=== PATIENT | male | born 1955 | race Caucasian/White ===

== ENCOUNTER → 2017-07-02 | Outpatient (CLI) | payer OTHER ==
[~2017-07-02] MED LIST: ASPI325; Aspir 8181 MG PO; DOXY100 PO; FLEC50 PO; LIVALO PO; METO50 PO; MULVITMINF PO; NEBI10 PO; OLMESARTAN MEDO20 MG PO; RAMI2.5 PO; RANI150 PO; SERT50 PO; UBID100 PO
[2017-07-02 10:58] LABS: BASOPHILS ABSOLUTE AUTO 0.04 K/mm3 (0.00-0.23); BASOPHILS PERCENT AUTO 1 % (0-2); EOSINOPHILS ABSOLUTE AUTO 0.17 K/mm3 (0.00-0.68); EOSINOPHILS PERCENT AUTO 3 % (0-6); Hematocrit 44.8 % (37.0-53.0); Hemoglobin 15.1 g/dL (13.5-17.5); IMMATURE GRAN ABSOLUTE AUTO 0.03 K/mm3 (0.00-0.10); IMMATURE GRAN PERCENT AUTO 1 % (0-1); LYMPHOCYTES PERCENT AUTO 27 % (21-46); MONOCYTES ABSOLUTE AUTO 0.66 K/mm3 (0.16-1.47); MONOCYTES PERCENT AUTO 12 % (4-13); Mean Corpuscular HGB 32.3 pg (26.0-34.0); Mean Corpuscular HGB Conc 33.7 g/dL (31.5-36.5); Mean Corpuscular Volume 96 fL (80-100); Mean Platelet Volume 9.6 fL (9.1-12.4); NEUTROPHILS ABSOLUTE AUTO 3.17 K/mm3 (1.96-9.15); NEUTROPHILS PERCENT AUTO 57 % (41-73); Platelet Count 185 K/mm3 (150-400); RDW Coefficient Variation 13.3 % (11.7-14.2); RDW Standard Deviation 46.1 fL (35.1-46.3); Red Blood Cell Count 4.68 M/mm3 (4.30-5.90); White Blood Cell Count 5.57 K/mm3 (4.00-11.30)
[2017-07-02 11:13] LABS: Alanine Aminotransfer (ALT/SGP 59 U/L (12-78); Albumin, Blood 4.1 g/dL (3.4-5.0); Albumin/Globulin Ratio 1.2 (0.8-1.8); Alk Phos 86 U/L (50-136); Anion Gap 6 mmol/L (6-16); Aspartate Aminotrans (AST/SGOT 22 U/L (12-37); Bilirubin, Total 0.7 mg/dL (0.1-1.0); Blood Urea Nitrogen 16 mg/dL (8-24); C-REACTIVE PROTEIN, EXT RANGE <0.290 mg/dL (0.000-0.300); CO2, Blood 27 mmol/L (21-32); CPK Creatine Kinase 128 U/L (39-308); Calcium, Blood 8.5 mg/dL (8.5-10.1); Chloride, Blood 110 mmol/L (98-108); Creatinine, Blood 0.84 mg/dL (0.60-1.20); Globulin, Blood 3.3 g/dL (2.2-4.0); Glomerular Filtration Rate >60 (60-); Glucose, Blood 117 mg/dL (70-99); Potassium, Blood 3.6 mmol/L (3.5-5.5); Sodium, Blood 143 mmol/L (136-145); Total Protein, Blood 7.4 g/dL (6.4-8.2)
[2017-07-02 11:16] LABS: Thyroid Stimulating Hormone 0.859 uIU/mL (0.360-4.800)
[2017-07-04 10:51] LABS: Antinuclear Antibody Screen Negative (Negative)
[2017-07-04 13:33] LABS: Rheumatoid Factor, Serum Negative (Negative)
== END ==
LOC: LAB 10:37
PROVIDERS: Family Medicine
DX: R53.83 Other fatigue (principal); R52 Pain, unspecified
CPT/HCPCS: 80053; 82550; 84443; 85025; 85651; 86038; 86140; 86430

== ENCOUNTER 2017-07-22 06:56 | Day surgery (SDC) | payer OTHER ==
[~2017-07-22] VITALS: Ht 180.3 cm; Wt 82.2 kg
== END 2017-07-22 08:57 | disposition home or self-care (01) ==
LOC: ORSCSDS 06:56
PROVIDERS: Internal Medicine Gastroenterology
PROC: 0DB68ZX Excision of Stomach, Via Natural or Artificial Opening Endoscopic, Diagnostic (ICD-10-PCS; principal; 2017-07-22 08:00)
PROC: 0DB58ZX Excision of Esophagus, Via Natural or Artificial Opening Endoscopic, Diagnostic (ICD-10-PCS; principal; 2017-07-22 08:00)
DX: K21.9 Gastro-esophageal reflux disease without esophagitis (principal); R05 Cough; I10 Essential (primary) hypertension; K29.80 Duodenitis without bleeding; K20.9 Esophagitis, unspecified; I48.0 Paroxysmal atrial fibrillation; K29.70 Gastritis, unspecified, without bleeding; Z79.899 Other long term (current) drug therapy
CPT/HCPCS: 88305; 88342; J0330; J1980; J2405; J7120

== ENCOUNTER 2019-10-31 10:41 | Day surgery (SDC) | payer MEDICARE, BC ==
[~2019-10-31] VITALS: Ht 180.3 cm; Wt 77.8 kg
--- NOTE | 2019-10-31 11:50 | NUR ---
10/31/19 1150 Christopher Wing 3ML [address] 200 M INJ INTO OPSITE AT 1142 BY MEHARVINDER.
== END 2019-10-31 12:17 | disposition home or self-care (01) ==
LOC: ORSCSDS 10:41
PROVIDERS: Anesthesiology
PROC: 3E0R33Z Introduction of Anti-inflammatory into Spinal Canal, Percutaneous Approach (ICD-10-PCS; principal; 2019-10-31 11:30)
DX: M54.12 Radiculopathy, cervical region (principal); I10 Essential (primary) hypertension; G90.3 Multi-system degeneration of the autonomic nervous system; I48.0 Paroxysmal atrial fibrillation; K21.9 Gastro-esophageal reflux disease without esophagitis; Z79.899 Other long term (current) drug therapy; Z79.82 Long term (current) use of aspirin
CPT/HCPCS: J1040; J2250; J3010; J7040

== ENCOUNTER 2021-04-13 12:03 | Day surgery (SDC) | payer MEDICARE, BC ==
[~2021-04-13] VITALS: Ht 180.3 cm; Wt 77.0 kg
[~2021-04-13 12:03] MED LIST changes: +ASPI81CH PO; +Ativan1 MG PO; +BANOPHEN25 MG PO; +BYDUREON B2 MG/0.81 SC; +CARBLEV25 PO; +DUTA.5 PO; +Diamox500 MG PO; +NAPR500 PO; +ONDA4 PO; +Pepcid40 MG PO; +TAMS.4ER PO; +ZANTAC PO
[2021-04-13] MEDS ORDERED: MIRALAX119 GM PO (12:40)
[2021-04-13] MEDS ORDERED: METO100ER PO (12:41)
[2021-04-13] MEDS ORDERED: NAPR500EC PO (12:43)
[2021-04-13] MEDS ORDERED: ASPI325 PO (12:43)
[2021-04-13] MEDS ORDERED: FAMO40 PO (12:44)
[2021-04-13] MEDS ORDERED: CARBLEV25 SL ×2 (12:51→13:02)
[2021-04-13] MEDS ORDERED: CARBIDOPA-LEVO1 EA11 PO (12:53)
[2021-04-13] MEDS ORDERED: CARBIDOPA-LEVO1 EA19 PO (14:27)
--- NOTE | 2021-04-13 14:54 | NUR ---
04/13/21 1454 Jasmyn Horvath PATIENT IS ON SCHEDULED ANTIBIOTIC VANCO LAST GIVE AT 1339 ON 04/13/21 PRIOR TO ARRIVAL IN OR. PATIENT LAST TOOK BETA CHERRI, METOPROLOL 50MG AT 2200 ON 04/12/21.
--- NOTE | 2021-04-13 17:06 | NUR ---
BLADDER SCAN 206ML
--- NOTE | 2021-04-13 17:54 | NUR ---
PT CPAP REMOVED FOR ICE CHIPS AND SIPS. PT MAINTAINED O2 SAT AT 92-93%. CPAP REPLACED.
--- NOTE | 2021-04-13 17:59 | NUR ---
DR CHOW AT BEDSIDE FOR CONULT. PT ABLE TO ANSWER QUESTIONS APPROPRIATELY.
[2021-04-13 19:31] LABS: BASOPHILS ABSOLUTE AUTO 0.02 K/mm3 (0.00-0.23); BASOPHILS PERCENT AUTO 0 % (0-2); EOSINOPHILS PERCENT AUTO 0 % (0-6); Hemoglobin 14.4 g/dL (13.5-17.5); IMMATURE GRAN ABSOLUTE AUTO 0.05 K/mm3 (0.00-0.10); IMMATURE GRAN PERCENT AUTO 1 % (0-1); LYMPHOCYTES PERCENT AUTO 7 % (21-46); MONOCYTES ABSOLUTE AUTO 0.21 K/mm3 (0.16-1.47); MONOCYTES PERCENT AUTO 3 % (4-13); Mean Corpuscular HGB 31.6 pg (26.0-34.0); Mean Corpuscular HGB Conc 33.5 g/dL (31.5-36.5); Mean Corpuscular Volume 95 fL (80-100); NEUTROPHILS ABSOLUTE AUTO 6.94 K/mm3 (1.96-9.15); NEUTROPHILS PERCENT AUTO 90 % (41-73); Platelet Count 175 K/mm3 (150-400); RDW Coefficient Variation 13.1 % (11.7-14.2); RDW Standard Deviation 45.2 fL (35.1-46.3); Red Blood Cell Count 4.55 M/mm3 (4.30-5.90); White Blood Cell Count 7.72 K/mm3 (4.00-11.30)
--- NOTE | 2021-04-13 19:45 | NUR ---
SHIFT SUMMARY PT ARRIVED TO THE ROOM FROM PACU AT APPROXIMATELY 1825. PT ALERT AND ORIENTED. PT ON CPAP WITH 10L O2, PT WAS TRASITIONED TO 2L O2 VIA NC, WITH SATURATIONS IN THE LOW 90S. PT DENIED NAUSEA AND REPORTED PAIN MANAGED. PT ABLE TO STAND AT THE BEDSIDE AND TRANSFER TO THE CHAIR. PT TOLERATED DINNER. VSS. REPORT GIVEN TO FRANCK GONZALES.
[2021-04-13 20:00] LABS: Albumin, Blood 3.3 g/dL (3.4-5.0); Anion Gap 6 mmol/L (6-16); Blood Urea Nitrogen 18 mg/dL (8-24); CO2, Blood 23 mmol/L (21-32); Calcium, Blood 8.6 mg/dL (8.5-10.1); Chloride, Blood 107 mmol/L (98-108); Glomerular Filtration Rate >60 (60-); Glucose, Blood 136 mg/dL (70-99); Magnesium, Blood 2.3 mg/dL (1.6-2.4); Phosphorus, Blood 2.5 mg/dL (2.5-4.9); Potassium, Blood 4.3 mmol/L (3.5-5.5); Sodium, Blood 136 mmol/L (136-145)
[2021-04-14 03:59] LABS: BASOPHILS ABSOLUTE AUTO 0.01 K/mm3 (0.00-0.23); BASOPHILS PERCENT AUTO 0 % (0-2); EOSINOPHILS PERCENT AUTO 0 % (0-6); Hematocrit 37.6 % (37.0-53.0); Hemoglobin 12.8 g/dL (13.5-17.5); IMMATURE GRAN ABSOLUTE AUTO 0.03 K/mm3 (0.00-0.10); IMMATURE GRAN PERCENT AUTO 0 % (0-1); LYMPHOCYTES ABSOLUTE AUTO 0.52 K/mm3 (0.84-5.20); LYMPHOCYTES PERCENT AUTO 7 % (21-46); MONOCYTES PERCENT AUTO 10 % (4-13); Mean Corpuscular HGB 31.7 pg (26.0-34.0); Mean Corpuscular Volume 93 fL (80-100); Mean Platelet Volume 9.3 fL (9.1-12.4); NEUTROPHILS ABSOLUTE AUTO 6.47 K/mm3 (1.96-9.15); NEUTROPHILS PERCENT AUTO 83 % (41-73); Platelet Count 167 K/mm3 (150-400); RDW Coefficient Variation 12.9 % (11.7-14.2); RDW Standard Deviation 44.6 fL (35.1-46.3); Red Blood Cell Count 4.04 M/mm3 (4.30-5.90); White Blood Cell Count 7.83 K/mm3 (4.00-11.30)
[2021-04-14 04:27] LABS: Anion Gap 7 mmol/L (6-16); Blood Urea Nitrogen 14 mg/dL (8-24); Bun/Creatinine Ratio 16.4 (12.0-20.0); CO2, Blood 24 mmol/L (21-32); Calcium, Blood 8.4 mg/dL (8.5-10.1); Chloride, Blood 105 mmol/L (98-108); Creatinine, Blood 0.86 mg/dL (0.60-1.20); Glomerular Filtration Rate >60 (60-); Glucose, Blood 123 mg/dL (70-99); Magnesium, Blood 2.1 mg/dL (1.6-2.4); Potassium, Blood 4.3 mmol/L (3.5-5.5); Sodium, Blood 136 mmol/L (136-145)
--- NOTE | 2021-04-14 07:30 | NUR ---
POD 1 S/P LEFT TKA. PT VSS T/O NIGHT. 2LO2 NC IN PLACE T/O NIGHT, SATS >90% ON RA THIS AM. DRESSING CDI, CHANGED BY SURGEON THIS AM. PT REP SENSATION AT BASELINE, CAP REFILL WNL. PT UP OOB W/FWW+SBA, AMB TO [facility] GYM AND BACK; [place]. PT DID STRUGGLE W/PAIN MGMT, REQUIRED IV MED FOR BREAKTHROUGH X1. PLAN FOR ECHO AND PT TODAY.
--- NOTE | 2021-04-14 09:55 | NUR ---
Echocardiogram completed. - kjw
[2021-04-14] MEDS ORDERED: AMOCLA875 PO (11:09)
[2021-04-14] MEDS ORDERED: OXYC5 PO (11:10)
[2021-04-14] MEDS ORDERED: ASPI81CH PO (11:11)
--- NOTE | 2021-04-14 11:42 | NUR ---
PHENERGAN PRESCRIPTION CALLED TO [facility].
--- NOTE | 2021-04-14 13:10 | NUR ---
DISCHARGE PT PROVIDED WITH WRITTEN AND VERBAL DISCHARGE INSTRUCTIONS, PT REPORTED UNDERSTANDING. PT PROVIDED WITH SCRIPT FOR FRONT WHEELED WALKER. PT PROVIDED WITH DRESSINGS AND DRESSING CHANGE INSTRUCTIONS. PT CLEARED THERAPY, PAIN MANAGED AND PT ABLE TO VOID. VSS. PT ASSISTED OUT IN WHEELCHAIR.
== END 2021-04-14 12:54 | disposition home or self-care (01) ==
LOC: ORSCMMR 12:03 → SURS 12:03 → ORSCMMR 12:04 → ORD 13:45 → SURS 18:12 → ORSCMMR 04-14 12:54
PROVIDERS: Internal Medicine; Orthopaedic Surgery
PROC: 8E0YXBZ Computer Assisted Procedure of Lower Extremity (ICD-10-PCS; principal; 2021-04-13 13:45)
PROC: 0SRD0J9 Replacement of Left Knee Joint with Synthetic Substitute, Cemented, Open Approach (ICD-10-PCS; principal; 2021-04-13 13:45)
DX: M17.12 Unilateral primary osteoarthritis, left knee (principal); G47.30 Sleep apnea, unspecified; I10 Essential (primary) hypertension; F41.9 Anxiety disorder, unspecified; Z79.899 Other long term (current) drug therapy
CPT/HCPCS: 36415; 71045; 73560-LT; 80048; 80069; 83735; 83880; 85025; 93306; 94660; 94762; 97110; 97116; 97162; A9270; C1713; C1776; J0171; J0690; J0735; J1100; J1170; J1885; J2250; J2370; J2405; J2704; J2795; J3010; J3370; J7120

== ENCOUNTER → 2022-07-28 | Outpatient (CLI) | payer MEDICARE, BC ==
[~2022-07-28] MED LIST changes: +AMOCLA875 PO; +ASPI325 PO; +CARBIDOPA-LEVO1 EA11 PO; +CARBIDOPA-LEVO1 EA19 PO; +CARBLEV25 SL; +FAMO40 PO; +METO100ER PO; +MIRALAX119 GM PO; +NAPR500EC PO; +OXYC5 PO
[2022-07-28 18:39] LABS: BASOPHILS ABSOLUTE AUTO 0.03 K/mm3 (0.00-0.23); BASOPHILS PERCENT AUTO 1 % (0-2); EOSINOPHILS ABSOLUTE AUTO 0.09 K/mm3 (0.00-0.68); EOSINOPHILS PERCENT AUTO 2 % (0-6); Hematocrit 43.7 % (37.0-53.0); Hemoglobin 15.2 g/dL (13.5-17.5); IMMATURE GRAN ABSOLUTE AUTO 0.01 K/mm3 (0.00-0.10); IMMATURE GRAN PERCENT AUTO 0 % (0-1); LYMPHOCYTES ABSOLUTE AUTO 1.16 K/mm3 (0.84-5.20); LYMPHOCYTES PERCENT AUTO 22 % (21-46); MONOCYTES ABSOLUTE AUTO 0.47 K/mm3 (0.16-1.47); MONOCYTES PERCENT AUTO 9 % (4-13); Mean Corpuscular HGB 33.6 pg (26.0-34.0); Mean Corpuscular HGB Conc 34.8 g/dL (31.5-36.5); Mean Corpuscular Volume 97 fL (80-100); Mean Platelet Volume 8.8 fL (9.1-12.4); NEUTROPHILS ABSOLUTE AUTO 3.48 K/mm3 (1.96-9.15); NEUTROPHILS PERCENT AUTO 66 % (41-73); Platelet Count 176 K/mm3 (150-400); RDW Coefficient Variation 11.9 % (11.7-14.2); RDW Standard Deviation 41.8 fL (35.1-46.3); Red Blood Cell Count 4.53 M/mm3 (4.30-5.90); White Blood Cell Count 5.24 K/mm3 (4.00-11.30)
[2022-07-28 18:54] LABS: Albumin, Blood 4.5 g/dL (3.4-5.0); Albumin/Globulin Ratio 1.6 (0.8-1.8); Alk Phos 97 U/L (40-126); Anion Gap 10 mmol/L (6-16); Aspartate Aminotrans (AST/SGOT 22 U/L (12-37); Bilirubin, Total 0.9 mg/dL (0.1-1.0); Blood Urea Nitrogen 15 mg/dL (8-24); Bun/Creatinine Ratio 15.6 (12.0-20.0); CO2, Blood 28 mmol/L (21-32); Calcium, Blood 9.1 mg/dL (8.5-10.1); Chloride, Blood 102 mmol/L (98-108); Creatinine, Blood 0.96 mg/dL (0.60-1.20); Globulin, Blood 2.9 g/dL (2.2-4.0); Glomerular Filtration Rate 87 (60-); Glucose, Blood 106 mg/dL (70-99); Potassium, Blood 4.1 mmol/L (3.5-5.5); Sodium, Blood 140 mmol/L (136-145); Total Protein, Blood 7.4 g/dL (6.4-8.2)
[2022-07-28 19:08] LABS: Alanine Aminotransfer (ALT/SGP <6 U/L (12-78)
== END | disposition home or self-care (01) ==
LOC: LAB SHORT 18:33 → LAB 18:33
PROVIDERS: Family Medicine
DX: N40.0 Benign prostatic hyperplasia without lower urinary tract symptoms (principal); R31.0 Gross hematuria
CPT/HCPCS: 80053; 85025; 87086

== ENCOUNTER → 2024-02-22 | Outpatient (CLI) | payer MEDICARE, BC | LOC: LAB 14:43 → LAB SHORT 14:43 | DX: M70.22 Olecranon bursitis, left elbow (principal) | CPT/HCPCS: 87070; 87075; 87205 ==